=== PATIENT | male | born 1985 | race African-American/Black ===

== ENCOUNTER 2021-11-21 18:22 | Emergency (ER) | payer SELFPAY ==
[2021-11-21 18:33] VITALS: BP 139/71; PULSE 83; RESP 16; TEMP 36.6; O2SAT 96
--- NOTE | 2021-11-21 19:57 | ED.GENADUL_ITS ---
Discharge Plan Disposition Patient Disposition: HOME Condition: Stable Discharge Details Clinical Impression: Fracture of tooth Primary Care Provider: Unknown,Unknown ED Provider: Talisha Rodgers Home Meds and New Rx's Prescriptions: No Action No Known Home Meds Discharge Instructions Instructions: Acute Dental Trauma (ED) Additional Instructions: Take oxycodone as needed for pain, this is addictive and he should not drive for 8 hours after taking this medication Ibuprofen and Tylenol for pain control Follow-up with your dentist tomorrow for appt I have used a nerve block, this will likely last between 6 and 20 hours Discharge Data Discharge Date/Time-TO BE ENTERED AT DEPARTURE: 11/21/21 20:27 Medical Decision Making Patient is symptomatically improved, tolerated procedure without incident Pack applied for comfort to the right lower tooth and patient will follow-up with dentist when he returns home Discharged home in stable condition No evidence of deep space infection or Jaylon's angina No indication for antibiotics Return precautions discussed and patient expressed understanding Medical Records Medical records reviewed: Yes I reviewed the patient's medical records. HPI General Date/Time Provider Initiated Documentation: 11/21/21 18:30 . HPI Narrative: This 36-year-old male who is otherwise healthy presents with right lower dental pain. He reportedly was eating a chicken nugget and fractured his tooth. He denies fever or chills. Patient states the pain is exacerbated with chewing the event occurred just prior to arrival. Denies chest pain or shortness of breath. Related Data Home Medications Medication Instructions Recorded Confirmed Unknown [No Known Home Meds] 11/21/21 11/21/21 Allergies Allergy/AdvReac Type Severity Reaction Status Date / Time No Known Allergies Allergy Unverified 11/21/21 18:39 General Stated Complaint: DentalOral INNA: 4 Review of Systems All systems reviewed & are unremarkable except as noted in HPI and below PFSH All Active Problems (Updated 11/21/21 @ 20:08 by SHAWN Ware) Fracture of tooth (Acute) Social History Smoking/Tobacco Use Status: Never Smoking risk assessment performed?: Yes Alcohol Intake: never Drug use: Daily Substance use type: marijuana Do you feel safe at home: Yes Do you feel safe in your relationship?: Yes Exam Const General: cooperative, comfortable and no acute distress [facility] Teeth image: 1. No trismus, no soft palate induration, no evidence of deep space infection Throat: uvula midline Neck Other: no stridor Resp Effort & Inspection: normal respiratory effort Auscultation: clear to auscultation bilaterally Cardio Rate: regular rate Skin General skin exam: no rashes or lesions noted Neuro General: patient alert and patient oriented x3 Course Vital Signs Vital signs: Vital Signs Temperature 36.6 C 11/21/21 18:33 Pulse 83 11/21/21 18:33 Respiratory Rate 16 11/21/21 18:33 Blood Pressure 139/71 11/21/21 18:33 Pulse Oximetry 96 11/21/21 18:33 Temperature 36.6 C 11/21/21 18:33 Temperature Source Temporal Artery Scan 11/21/21 18:33 Pulse 83 11/21/21 18:33 Respiratory Rate 16 11/21/21 18:33 Respiratory Effort 11/21/21 18:38 Blood Pressure 139/71 11/21/21 18:33 Blood Pressure Position Sitting 11/21/21 18:33 Pulse Oximetry 96 11/21/21 18:33 Oxygen Delivery Method Room Air 11/21/21 18:33 Oxygen Flow Rate 0 11/21/21 18:33 Pain Level 10 11/21/21 18:40 Procedures Nerve Block Nerve Block 1: Nerve Blocks: other Intraoral Nerve Block: inferior alveolar Procedure Successful: Yes Complications: none
== END 2021-11-21 20:27 | disposition home or self-care (01) ==
PROVIDERS: Emergency Provider Physician Assistant
DX: S02.5XXA Fracture of tooth (traumatic), initial encounter for closed fracture (principal); X58.XXXA Exposure to other specified factors, initial encounter
CPT/HCPCS: 64400